=== PATIENT | female | born 1990 | race Asian ===

== ENCOUNTER 2017-04-28 03:15 | Inpatient (IN) | payer SELFPAY ==
[~2017-04-28] VITALS: Ht 154.9 cm; Wt 78.9 kg
[2017-04-28] MEDS ORDERED: LR 1,000 ML IV SCH ×3 (03:49→05:33)
[2017-04-28] MEDS ORDERED: CEFAZOLIN 2 GM IVPB PREMIX 50 ML IV ONE ×2 (04:00→05:01)
[2017-04-28 04:35] LABS: HEMATOCRIT 38.8 % (36-48); HEMOGLOBIN 12.9 g/dL (12.0-16.0); MEAN CORPUSCULAR HEMOGLOBIN 32 pg (27-31); MEAN CORPUSCULAR HGB CONC 33 % (32-36); MEAN CORPUSCULAR VOLUME 94 fL (79.0-98.0); PLATELET COUNT (AUTO) 124 K/uL (130-430); RED BLOOD CELL COUNT(AUTO) 4.11 MIL/uL (4.2-6.2); WHITE BLOOD COUNT (AUTO) 9.8 K/uL (4.8-10.8)
[2017-04-28 04:36] LABS: BASOPHILS % (AUTO) 0.5 % (0.0-2.0); EOSINOPHILS % (AUTO) 0.3 % (0.0-4.0); LYMPHOCYTES % (AUTO) 11.2 % (20.5-51.5); MONOCYTES % (AUTO) 6.4 % (1.7-9.3); NEUTROPHILS % (AUTO) 81.6 % (40.0-70.0)
[2017-04-28 04:37] LABS: LYMPHOCYTES # (AUTO) 1.1 K/uL (1.0-5.5); MONOCYTES # (AUTO) 0.6 K/uL (0.0-1.0); NEUTROPHILS # (AUTO) 8.1 K/uL (1.8-7.7)
[2017-04-28 04:52] LABS: BILIRUBIN,URINE NEGATIVE (NEGATIVE); BLOOD, URINE 3+ (NEGATIVE); CLARITY/URINE HAZY (CLEAR); COLOR,URINE YELLOW (YELLOW); GLUCOSE,URINE NEGATIVE (NEGATIVE); KETONES,URINE 1+ (NEGATIVE); LEUKOCYTE ESTERASE ,URINE 1+ (NEGATIVE); NITRITE, URINE NEGATIVE (NEGATIVE); PH,URINE 6.5 (5.0-8.0); PROTEIN URINE TRACE (NEGATIVE); UROBILINOGEN,URINE 0.2 (0.2-1.0)
[2017-04-28 04:59] LABS: BACTERIA,URINE FEW /HPF (None Seen); RBC,URINE 0-3 /HPF (0-3)
[2017-04-28] MEDS ORDERED: OXYTOCIN 10 UNIT/ML VIAL IV ONE (05:01)
[2017-04-28] MEDS ORDERED: LR 1,000 ML IV.SOLN IV ONE (05:01)
[2017-04-28] MEDS ORDERED: BUPIVACAINE /PF 0.75% 10 ML VIAL INJ ONE (05:01)
[2017-04-28] MEDS ORDERED: OXYMETAZOLINE HCL 0.05% NASAL SPRAY NS ONE (05:01)
[2017-04-28] MEDS ORDERED: MORPHINE SULFATE 10MG/10ML PF AMP EP ONE (05:01)
[2017-04-28] MEDS ORDERED: NS IRRIG SOLN 1000 ML IR ONE (05:01)
[2017-04-28] MEDS ORDERED: OXYTOCIN/NORMAL SALINE 1,000 ML IV ONE ×2 (05:10→06:53)
[2017-04-28] MEDS ORDERED: HYDROcodone/ACETAMIN 5-325 MG TAB (NORCO/ VICODIN) PO PRN ×2 (05:15)
[2017-04-28] MEDS ORDERED: LANOLIN 7 GM OINT. TP PRN (05:15)
[2017-04-28] MEDS ORDERED: BISACODYL 10 MG/SUPPOSITORY RC PRN (05:15)
[2017-04-28] MEDS ORDERED: SENNOSIDES/DOCUSATE SODIUM 1 TAB TABLET(SENOKOT-S) PO PRN (05:15)
[2017-04-28] MEDS ORDERED: SIMETHICONE 80 MG TAB.CHEW PO PRN (05:15)
[2017-04-28] MEDS ORDERED: DOCUSATE SODIUM 100 MG CAPSULE PO PRN (05:15)
[2017-04-28] MEDS ORDERED: RHO(D) IMMUNE GLOBULIN/MALTOSE 1500 UNITS/1.3 ML (WINHRO) IM PRN (05:15)
[2017-04-28] MEDS ORDERED: ACETAMINOPHEN 325 MG TABLET PO PRN (05:15)
[2017-04-28] MEDS ORDERED: TEMAZEPAM 15 MG CAPSULE PO PRN (05:15)
[2017-04-28] MEDS ORDERED: MEASLES,MUMPS&RUBELLA VACC/PF 12500 UNIT/0.5 ML VIAL SUBQ PRN (05:15)
[2017-04-28] MEDS ORDERED: ANUSOL 1 EA SUPP.RECT (PREPARATION H) RC PRN (05:15)
[2017-04-28] MEDS ORDERED: HYDROmorphone 1 MG INJ. 1 MG/ML AMPUL IVP PRN ×2 (05:45)
[2017-04-28] MEDS ORDERED: HYDROmorphone 2 MG/ML VIAL IVP PRN ×2 (05:45)
[2017-04-28] MEDS ORDERED: DIPHENHYDRAMINE INJ 50 MG/ML VIAL IVP PRN (05:45)
[2017-04-28] MEDS ORDERED: ePHEDrine sulfate 50 MG/ML VIAL IVP PRN (05:45)
[2017-04-28] MEDS ORDERED: MORPHINE SULFATE 10MG/10ML PF AMP SP SCH (05:45)
[2017-04-28] MEDS ORDERED: MEPERIDINE HCL/PF 25 MG/ML DISP.SYRIN IVP PRN ×2 (05:45)
[2017-04-28] MEDS ORDERED: ONDANSETRON HCL 4 MG/2 ML VIAL IVP PRN ×2 (05:45)
[2017-04-28] MEDS ORDERED: NALOXONE HCL 0.4 MG/ML AMP (NARCAN) IVP PRN (05:45)
[2017-04-28] MEDS ORDERED: NALBUPHINE HCL 10 MG/ML AMP IVP PRN (05:45)
[2017-04-28 06:10] VITALS: BP_SYST 96
[2017-04-29] MEDS: IBUPROFEN 600 MG TABLET PO SCH ×6 (05:20→18:33)
[2017-04-29 07:01] LABS: BASOPHILS % (AUTO) 0.3 % (0.0-2.0); EOSINOPHILS % (AUTO) 0.4 % (0.0-4.0); HEMATOCRIT 37.5 % (36-48); HEMOGLOBIN 12.9 g/dL (12.0-16.0); LYMPHOCYTES # (AUTO) 1.3 K/uL (1.0-5.5); LYMPHOCYTES % (AUTO) 10.8 % (20.5-51.5); MEAN CORPUSCULAR HEMOGLOBIN 32 pg (27-31); MEAN CORPUSCULAR HGB CONC 34 % (32-36); MEAN CORPUSCULAR VOLUME 94 fL (79.0-98.0); MONOCYTES # (AUTO) 0.7 K/uL (0.0-1.0); MONOCYTES % (AUTO) 5.8 % (1.7-9.3); NEUTROPHILS # (AUTO) 10.1 K/uL (1.8-7.7); NEUTROPHILS % (AUTO) 82.7 % (40.0-70.0); PLATELET COUNT (AUTO) 131 K/uL (130-430); WHITE BLOOD COUNT (AUTO) 12.1 K/uL (4.8-10.8)
[2017-04-30] MEDS ORDERED: MILK OF MAGNESIA 30 ML UDC PO PRN (05:00)
== END 2017-04-30 15:45 | disposition home or self-care (01) | DRG 765 ==
LOC: SPU 03:15
PROVIDERS: ADMIT Obstetrics & Gynecology; ATTEND Obstetrics & Gynecology
PROC: 10D00Z1 Extraction of Products of Conception, Low, Open Approach (ICD-10-PCS; principal; 2017-04-28 05:00)
DX: O34.211 Maternal care for low transverse scar from previous cesarean delivery (principal); O98.42 Viral hepatitis complicating childbirth; B19.10 Unspecified viral hepatitis B without hepatic coma; Z37.0 Single live birth; Z3A.39 39 weeks gestation of pregnancy
CPT/HCPCS: 36415; 81000-TC; 85025; 86592; 86886; 86900; 86901; 87086; 94760; J0690; J2274; J2590; J3490; J7120